=== PATIENT | female | born 1960 | race Caucasian/White ===

== ENCOUNTER 2019-05-28 10:27 | Emergency (ER) | payer BC ==
--- NOTE | 2019-05-28 14:57 | RAD ---
CHEST 2 VIEWS: Date: 05/28/19 No major lobar infiltrate seen. There is a minor amount of lingular streaking that is most likely sca rring. There is a very small amount of retrocardiac streaking that is indeterminate. The lung apices are clear. There are no effusions. The heart size is normal. IMPRESSION: Some minimal posterior streaking is not necessarily abnormal. None of the findings are sufficient to confidently diagnose a pneumonia at this time. POS: HOME
== END 2019-05-28 11:12 | disposition home or self-care (01) ==
LOC: BURERS 10:27
DX: J18.1 Lobar pneumonia, unspecified organism (principal); D50.9 Iron deficiency anemia, unspecified; K76.9 Liver disease, unspecified
CPT/HCPCS: 71046

== ENCOUNTER 2020-12-14 12:01 | Outpatient (CLI) | payer BC, MEDICARE ==
[2020-12-14 12:32] LABS: ALT (SGPT) 73 U/L (8-55); AST (SGOT) 151 U/L (5-34); Albumin 2.9 g/dL (3.4-4.8); Alkaline Phosphatase 418 U/L (40-110); Anion Gap 19 mmol/L (10-20); BUN (Urea Nitrogen) 12 mg/dL (9.8-20.1); Bilirubin, Total 21.2 mg/dL (0.2-1.2); Calc. Creatinine Clearance 0 mL/min (70-130); Calcium 8.5 mg/dL (7.8-10.44); Carbon Dioxide 16 mmol/L (23-31); Chloride 103 mmol/L (98-107); Globulin 3.9 g/dL (2.4-3.5); Glucose 97 mg/dL (80-115); Potassium 3.2 mmol/L (3.5-5.1); Protein, Total 6.8 g/dL (6.0-8.3); Sodium 135 mmol/L (136-145)
[2020-12-14 16:40] LABS: Bilirubin Large (Negative); Blood, Urine Negative (Negative); Glucose, Urine (Dipstick) 100 mg/dL (Negative); Ketone, Urine 15 mg/dL (Negative); Leukocyte Negative (Negative); Nitrite Negative (Negative); Protein, Urine (Dipstick) 30 mg/dL (Neg-Trace); Specific Gravity, Urine 1.015 (1.005-1.030); Urobilinogen 0.2 mg/dL (Less than 2)
[2020-12-14 16:41] LABS: Clarity Hazy (Clear)
[2020-12-14 16:45] LABS: Bacteria/HPF 2+ HPF (None Seen); Mucous/LPF Few LPF (<2+); RBC/HPF 0-3 HPF (0-3); Squamous Epithelial 0-3 HPF (0-3); WBC/HPF 0-3 HPF (0-3)
== END 2020-12-14 12:02 | disposition home or self-care (01) ==
LOC: BURLAB 12:01
PROVIDERS: ATTEND Legal Medicine
DX: N39.0 Urinary tract infection, site not specified (principal); K83.01 Primary sclerosing cholangitis; K74.60 Unspecified cirrhosis of liver; K51.90 Ulcerative colitis, unspecified, without complications; K72.90 Hepatic failure, unspecified without coma
CPT/HCPCS: 80053; 81001; 87086

== ENCOUNTER 2024-05-20 09:42 | Outpatient (CLI) | payer MEDICARE | END 2024-05-20 09:43 | disposition home or self-care (01) | LOC: BURRAD 09:42 | PROVIDERS: ATTEND Family Medicine | DX: R05.3 Chronic cough (principal); J98.4 Other disorders of lung | CPT/HCPCS: 71046 ==